=== PATIENT | female | born 1985 | race Caucasian/White ===

== ENCOUNTER → 2022-09-30 | Outpatient (CLI) | payer MEDICAID, SELFPAY ==
--- NOTE | 2022-09-30 15:30 | US_ITS ---
INDICATION: INFERTILITY EXAMINATION: Ultrasound US Sonohysterography including color flow Doppler, when performed TECHNIQUE: After obtaining informed consent, routine transabdominal sonography was performed. Subsequently, a speculum was placed in the vaginal canal and a catheter inserted into the endometrial canal. Sterile saline was then injected into the endometrial canal under sonographic guidance. COMPARISON: None. FINDINGS: ---Routine Ultrasound Exam: UTERUS: The uterus is normal in size. There is no uterine mass. The endometrial stripe measures 5 mm in AP diameter . FREE FLUID: None. ---Sonohysterography: There is small calcification noted in the endometrium measuring 1 mm. There is no evidence of polypoid lesions. US/SIS-SALINE INF SONOHYSTEROGRAM IMPRESSION: There is small calcification noted in the endometrium measuring 1 mm. There is no evidence of polypoid lesions. Electronically Signed: Evette Thurston MD at 0:46 EDT ,
== END | disposition home or self-care (01) ==
PROVIDERS: Referring Provider Obstetrics & Gynecology; Visit Provider Obstetrics & Gynecology
DX: N97.9 Female infertility, unspecified (principal)
CPT/HCPCS: 58340; 76831

== ENCOUNTER → 2022-11-15 | Outpatient (CLI) | payer MEDICAID, SELFPAY ==
[2022-11-15 10:34] LABS: hCG Titer Quant., Serum < 1 mIU/mL (1-3)
[2022-11-15 10:56] LABS: Estradiol 13.4 pg/mL; Follicle Stimulating Hormone 41.4 mIU/mL; Luteinizing Hormone 16.3 mIU/mL; Thyroid Stim Hormone (TSH) 2.35 uIU/mL (0.358-3.74)
[2022-11-15 10:58] LABS: Progesterone Level < 0.21 ng/mL (See Comment)
== END | disposition home or self-care (01) ==
LOC: WOBLAB 09:30
PROVIDERS: Visit Provider Obstetrics & Gynecology Reproductive Endocrinology
DX: Z31.83 Encounter for assisted reproductive fertility procedure cycle (principal)
CPT/HCPCS: 36415; 82670; 83001; 83002; 84144; 84443; 84702

== ENCOUNTER → 2022-11-19 | Outpatient (CLI) | payer MEDICAID, SELFPAY ==
[2022-11-19 11:09] LABS: Estradiol 13.5 pg/mL; Luteinizing Hormone 20.6 mIU/mL
[2022-11-19 11:14] LABS: Progesterone Level < 0.21 ng/mL (See Comment)
== END | disposition home or self-care (01) ==
LOC: WOBLAB 10:22
PROVIDERS: Visit Provider Obstetrics & Gynecology Reproductive Endocrinology
DX: Z31.83 Encounter for assisted reproductive fertility procedure cycle (principal)
CPT/HCPCS: 36415; 82670; 83002; 84144

== ENCOUNTER → 2022-11-22 | Outpatient (CLI) | payer MEDICAID, SELFPAY ==
[2022-11-22 13:37] LABS: Estradiol 14.9 pg/mL; Luteinizing Hormone 8.2 mIU/mL
[2022-11-22 14:01] LABS: Progesterone Level < 0.21 ng/mL (See Comment)
== END | disposition home or self-care (01) ==
LOC: WOBLAB 11:54
PROVIDERS: Visit Provider Obstetrics & Gynecology Reproductive Endocrinology
DX: Z31.83 Encounter for assisted reproductive fertility procedure cycle (principal)
CPT/HCPCS: 36415; 82670; 83002; 84144

== ENCOUNTER → 2022-11-26 | Outpatient (CLI) | payer MEDICAID, SELFPAY ==
[2022-11-26 13:39] LABS: Estradiol 32.2 pg/mL; Luteinizing Hormone 27.8 mIU/mL
[2022-11-26 14:07] LABS: Progesterone Level < 0.21 ng/mL (See Comment)
== END | disposition home or self-care (01) ==
PROVIDERS: Visit Provider Obstetrics & Gynecology Reproductive Endocrinology
DX: Z31.83 Encounter for assisted reproductive fertility procedure cycle (principal)
CPT/HCPCS: 36415; 82670; 83002; 84144

== ENCOUNTER → 2022-12-01 | Outpatient (CLI) | payer MEDICAID, SELFPAY ==
[2022-12-01 10:55] LABS: Progesterone Level 0.39 ng/mL (See Comment)
[2022-12-01 10:57] LABS: Luteinizing Hormone 24.2 mIU/mL
== END | disposition home or self-care (01) ==
PROVIDERS: Visit Provider Obstetrics & Gynecology Reproductive Endocrinology
DX: Z31.83 Encounter for assisted reproductive fertility procedure cycle (principal)
CPT/HCPCS: 36415; 82670; 83002; 84144

== ENCOUNTER → 2022-12-03 | Outpatient (CLI) | payer MEDICAID, SELFPAY ==
[2022-12-03 12:17] LABS: Estradiol 72.5 pg/mL; Luteinizing Hormone 13.3 mIU/mL
[2022-12-03 12:19] LABS: Progesterone Level 0.39 ng/mL (See Comment)
== END | disposition home or self-care (01) ==
LOC: WOBLAB 11:18
PROVIDERS: Visit Provider Obstetrics & Gynecology Reproductive Endocrinology
DX: Z31.83 Encounter for assisted reproductive fertility procedure cycle (principal)
CPT/HCPCS: 36415; 82670; 83002; 84144

== ENCOUNTER → 2022-12-07 | Outpatient (CLI) | payer MEDICAID, SELFPAY ==
[2022-12-07 13:24] LABS: Estradiol 75.9 pg/mL; Luteinizing Hormone 7.4 mIU/mL
== END | disposition home or self-care (01) ==
PROVIDERS: Visit Provider Obstetrics & Gynecology Reproductive Endocrinology
DX: E28.9 Ovarian dysfunction, unspecified (principal)
CPT/HCPCS: 36415; 82670; 83002; 84144

== ENCOUNTER → 2022-12-10 | Outpatient (CLI) | payer MEDICAID, SELFPAY ==
[2022-12-10 12:55] LABS: Progesterone Level 0.59 ng/mL (See Comment)
[2022-12-10 13:02] LABS: Estradiol 122.7 pg/mL; Luteinizing Hormone 57.5 mIU/mL
== END | disposition home or self-care (01) ==
LOC: LAB 12:06
PROVIDERS: Referring Provider Obstetrics & Gynecology Reproductive Endocrinology; Visit Provider Obstetrics & Gynecology Reproductive Endocrinology
DX: Z31.83 Encounter for assisted reproductive fertility procedure cycle (principal); E28.9 Ovarian dysfunction, unspecified
CPT/HCPCS: 36415; 82670; 83002; 84144